=== PATIENT | male | born 1965 | race Caucasian/White ===

== ENCOUNTER 2017-11-22 16:19 | Emergency (ER) | payer BC ==
[~2017-11-22] VITALS: Ht 180.3 cm; Wt 95.0 kg
[2017-11-22 19:03] VITALS: BP 124/72
== END 2017-11-22 19:04 | disposition home or self-care (01) ==
LOC: ER 16:19
DX: S80.862A Insect bite (nonvenomous), left lower leg, initial encounter (principal); S80.861A Insect bite (nonvenomous), right lower leg, initial encounter; L03.116 Cellulitis of left lower limb; L03.115 Cellulitis of right lower limb; R03.0 Elevated blood-pressure reading, without diagnosis of hypertension; W57.XXXA Bitten or stung by nonvenomous insect and other nonvenomous arthropods, initial encounter; Y93.89 Activity, other specified; Y92.092 Bedroom in other non-institutional residence as the place of occurrence of the external cause; F17.210 Nicotine dependence, cigarettes, uncomplicated
CPT/HCPCS: 99283; Z7610

== ENCOUNTER 2022-11-22 17:06 | Emergency (ER) | payer BC, MEDICAID, OTHER ==
[~2022-11-22] VITALS: Ht 182.9 cm; Wt 100.0 kg
[2022-11-22 17:56] VITALS: BP 132/78; PULSE 82; RESP 18; TEMP 98; O2SAT 97
[2022-11-22] MEDS ORDERED: KETOROLAC 60MG/2ML VIAL IM ONE (18:15)
[2022-11-22] MEDS ORDERED: CYCL10TA21 MT (19:37)
[2022-11-22] MEDS ORDERED: IBUP-2029 MT (19:37)
== END 2022-11-22 20:19 | disposition home or self-care (01) ==
LOC: ER 17:06
DX: M54.9 Dorsalgia, unspecified (principal)
CPT/HCPCS: 99285; 93970; 72100; 96372; J1885

== ENCOUNTER 2022-12-13 17:31 | Emergency (ER) | payer OTHER ==
[~2022-12-13] VITALS: Ht 180.3 cm; Wt 97.0 kg
[~2022-12-13 17:31] MED LIST: CYCL10TA21 MT; IBUP-2029 MT
[2022-12-13 17:40] VITALS: TEMP 98.4; O2SAT 96
[2022-12-13] MEDS ORDERED: IBUPROFEN 600MG TABLET PO ONE (19:45)
[2022-12-13] MEDS ORDERED: AMOXICILLIN/POTASSIUM CLAVULANATE 875/125MG TAB PO ONE (19:45)
[2022-12-13] MEDS ORDERED: BACITRACIN ZINC OINT UDPKT TOP ONE (19:45)
[2022-12-13] MEDS ORDERED: IBUPROFEN 600MG TABLET PO NR (22:15)
[2022-12-13] MEDS ORDERED: AMOXICILLIN/POTASSIUM CLAVULANATE 875/125MG TAB PO NR (22:15)
[2022-12-13] MEDS ORDERED: BACITRACIN ZINC OINT UDPKT TOP NR (22:15)
[2022-12-13 22:22] VITALS: BP 144/108; PULSE 109; RESP 20
[2022-12-13] MEDS ORDERED: IBUP-2029 MT (22:57)
[2022-12-13] MEDS ORDERED: AMOX1TAB16 MT (22:57)
== END 2022-12-13 23:22 | disposition home or self-care (01) ==
LOC: ER 17:31
DX: S61.552A Open bite of left wrist, initial encounter (principal); Z98.890 Other specified postprocedural states; W54.0XXA Bitten by dog, initial encounter; Y93.89 Activity, other specified; Y92.89 Other specified places as the place of occurrence of the external cause; Y99.8 Other external cause status
CPT/HCPCS: 73130; 99283

== ENCOUNTER 2023-03-17 08:04 | Emergency (ER) | payer OTHER ==
[~2023-03-17] VITALS: Ht 180.3 cm; Wt 86.0 kg
[~2023-03-17 08:04] MED LIST changes: +AMOX1TAB16 MT
[2023-03-17 08:08] VITALS: TEMP 97.9; O2SAT 100
[2023-03-17 09:15] VITALS: BP 114/72; PULSE 92; RESP 20
[2023-03-17] MEDS ORDERED: BACITRACIN ZINC OINT UDPKT TOP ONE (09:15)
[2023-03-17] MEDS ORDERED: ACETAMINOPHEN WITH CODEINE 300/30MG TABLET PO ONE (09:15)
[2023-03-17] MEDS ORDERED: AMOX1TAB16 MT (09:51)
[2023-03-17] MEDS ORDERED: T3 PO (09:51)
[2023-03-17] MEDS ORDERED: IBUP-2029 MT (09:51)
== END 2023-03-17 10:11 | disposition home or self-care (01) ==
LOC: ER 08:04
DX: S61.452A Open bite of left hand, initial encounter (principal); W54.0XXA Bitten by dog, initial encounter; Y93.89 Activity, other specified; Y92.89 Other specified places as the place of occurrence of the external cause; Y99.8 Other external cause status
CPT/HCPCS: 73130; 99283

== ENCOUNTER 2023-05-13 12:27 | Emergency (ER) | payer OTHER ==
[~2023-05-13] VITALS: Ht 180.3 cm; Wt 89.0 kg
[~2023-05-13 12:27] MED LIST changes: +T3 PO
[2023-05-13 12:34] VITALS: O2SAT 100
[2023-05-13] MEDS: KETOROLAC 30MG/ML VIAL IM ONE (12:45)
[2023-05-13] MEDS: METHOCARBAMOL 500MG TABLET PO ONE (12:45)
[2023-05-13] MEDS ORDERED: IBUP-2029 MT (14:26)
[2023-05-13] MEDS ORDERED: GABA-529 MT (14:26)
[2023-05-13 14:59] VITALS: BP 136/87; PULSE 88; RESP 18; TEMP 98.2
== END 2023-05-13 15:11 | disposition home or self-care (01) ==
LOC: ER 12:27
DX: M51.36 Other intervertebral disc degeneration, lumbar region (principal)
CPT/HCPCS: 99283; 72110; 96372; J1885

== ENCOUNTER 2023-05-25 00:47 | Emergency (ER) | payer OTHER ==
[~2023-05-25] VITALS: Ht 180.3 cm; Wt 88.0 kg
[~2023-05-25 00:47] MED LIST changes: +GABA-529 MT
[2023-05-25 00:54] VITALS: O2SAT 99
[2023-05-25 02:14] LABS: BASOPHILS % 1.2 % (0.0-2.0); EOSINOPHILS % 0.8 % (0.0-5.0); HEMATOCRIT. 41.3 % (42.0-52.0); HEMOGLOBIN. 13.4 g/dL (14.0-18.0); LYMPHOCYTES % 23.2 % (20.0-50.0); MEAN CORPUSCULAR HEMOGLOBIN 28.6 pg (28.0-32.0); MEAN CORPUSCULAR HGB CONC 32.4 g/dL (31.0-37.0); MEAN CORPUSCULAR VOLUME 88.5 fL (80.0-94.0); MEAN PLATELET VOLUME 8.1 fl (7.4-10.4); MONOCYTES % 8.8 % (2.0-8.0); PLATELET 357 x1000/uL (130-400); RED BLOOD CELL COUNT 4.67 mill/uL (4.7-6.1); RED CELL DISTRIBUTION WIDTH 15.3 % (11.6-14.6); WHITE BLOOD COUNT 8.7 x1000/uL (4.5-11.0)
[2023-05-25 02:31] LABS: ALANINE AMINOTRANSFERASE 97 IU/L (10-49); ALBUMIN 3.4 g/dL (3.2-4.8); ASPARTATE AMINOTRANSFERASE 66 IU/L (<34); BILIRUBIN TOTAL 0.8 mg/dL (0.1-1.0); CALCIUM 7.9 mg/dL (8.7-10.4); CARBON DIOXIDE 21 mEq/L (21-32); CHLORIDE 113 mEq/L (98-107); CREATININE 1.1 mg/dL (0.6-1.3); GLUCOSE 91 mg/dL (70-105); POTASSIUM 4.1 mEq/L (3.5-5.1); PROTEIN TOTAL 6.1 g/dL (6.0-8.3); SODIUM 141 mEq/L (136-145); UREA NITROGEN BLOOD 23 mg/dL (9-23)
[2023-05-25 06:54] LABS: TROPONIN I HIGH SENSITIVITY 46 ng/L (3.0-53)
[2023-05-25 09:37] LABS: TROPONIN I HIGH SENSITIVITY 45 ng/L (3.0-53)
[2023-05-25 10:12] VITALS: BP 114/82; PULSE 79; RESP 16; TEMP 98.1
== END 2023-05-25 10:16 | disposition home or self-care (01) ==
LOC: ER 00:47
DX: R60.0 Localized edema (principal); F17.200 Nicotine dependence, unspecified, uncomplicated; Z79.899 Other long term (current) drug therapy
CPT/HCPCS: 80053; 83880; 85025; 84484; 36415; 71045; 93970; 93005; 99285; Z7610 ×2

== ENCOUNTER 2023-10-11 15:47 | Inpatient (IN) | payer OTHER ==
[~2023-10-11] VITALS: Ht 180.3 cm; Wt 97.8 kg
[~2023-10-11 15:47] MED LIST changes: +AMI2 PO; -AMOX1TAB16 MT; -CYCL10TA21 MT; +FURO80TA87 MT; -IBUP-2029 MT; -T3 PO
[2023-10-11 16:15] VITALS: O2SAT 97
[2023-10-11 17:07] LABS: CHLORIDE 107 mEq/L (98-107); POTASSIUM 3.9 mEq/L (3.5-5.1); SODIUM 139 mEq/L (136-145)
[2023-10-11 17:08] LABS: CALCIUM 8.3 mg/dL (8.7-10.4); CARBON DIOXIDE 26 mEq/L (21-32)
[2023-10-11 17:12] LABS: BASOPHILS % 1.3 % (0.0-2.0); EOSINOPHILS % 1.5 % (0.0-5.0); HEMATOCRIT. 27.8 % (42.0-52.0); HEMOGLOBIN. 8.3 g/dL (14.0-18.0); LYMPHOCYTES % 22.7 % (20.0-50.0); MEAN CORPUSCULAR HEMOGLOBIN 23.1 pg (28.0-32.0); MEAN PLATELET VOLUME 7.5 fl (7.4-10.4); NEUTROPHILS % 63.5 % (40.0-76.0); PLATELET 449 x1000/uL (130-400); RED CELL DISTRIBUTION WIDTH 22.2 % (11.6-14.6); WHITE BLOOD COUNT 9.4 x1000/uL (4.5-11.0)
[2023-10-11 17:13] LABS: GLUCOSE 128 mg/dL (70-105); UREA NITROGEN BLOOD 13 mg/dL (9-23)
[2023-10-11 17:14] LABS: DIFFERENTIAL COMMENT 1
[2023-10-11 17:15] LABS: ADD RBC MORPHOLOGY YES
[2023-10-11 18:33] LABS: PLATELET ESTIMATE INCREASED
[2023-10-11 18:38] LABS: ANISOCYTOSIS 2+; HYPOCHROMASIA 1+; MICROCYTOSIS 1+; OVALOCYTES 1+
[2023-10-11 18:59] LABS: TROPONIN I HIGH SENSITIVITY 19 ng/L (3.0-53)
[2023-10-11] MEDS: HYDROCODONE/ACETAMINOPHEN 5/325MG TABLET PO ONE (19:02)
[2023-10-11 19:09] LABS: CLARITY URINE CLEAR (CLEAR); COLOR URINE DARK YELLOW (YELLOW); GLUCOSE URINE NEGATIVE (NEGATIVE); KETONES URINE TRACE (NEGATIVE); LEUKOCYTE ESTERASE URINE 1+ (NEGATIVE); NITRITE URINE NEGATIVE (NEGATIVE); OCCULT BLOOD URINE NEGATIVE (NEGATIVE); PH URINE 6.5 (4.5-8.0); PROTEIN URINE 1+ (NEGATIVE); SPECIFIC GRAVITY URINE 1.017 (1.005-1.030)
[2023-10-11 19:18] LABS: BACTERIA URINE TRACE; RBC URINE NONE SEEN /hpf (0-2); SQUAMOUS EPITHELIAL CELL URINE RARE /lpf (RARE/1+)
[2023-10-11] MEDS: FUROSEMIDE 40MG/4ML VIAL IVP ONE (20:18)
[2023-10-11] MEDS ORDERED: CLONIDINE 0.1MG TABLET PO PRN (22:30)
[2023-10-11] MEDS ORDERED: IPRATROPIUM/ALBUTEROL 0.5-3(2.5)MG/3ML NEB HHN PRN (22:30)
[2023-10-11] MEDS ORDERED: ACETAMINOPHEN 325MG TABLET PO PRN (22:30)
[2023-10-11] MEDS ORDERED: MAGNESIUM/ALUMINUM HYDROXIDE/SIMETHICONE 30ML UDC PO PRN (22:30)
[2023-10-11] MEDS ORDERED: DOCUSATE SODIUM 100MG CAPSULE PO PRN (22:30)
[2023-10-11] MEDS ORDERED: ONDANSETRON HCL 4MG/2ML INJ IV PRN (22:30)
[2023-10-11 22:41] VITALS: BP 130/89; PULSE 94; RESP 17; TEMP 36.61404; O2SAT 98
[2023-10-11 22:48] VITALS: BP 130/89; PULSE 94; RESP 17; TEMP 36.6404
[2023-10-11 23:39] LABS: IRON 15 ug/dL (65-175)
[2023-10-11 23:40] LABS: LDL CHOLESTEROL 92 mg/dL (5-100); TRIGLYCERIDE 72 mg/dL (0-150)
[2023-10-11 23:41] LABS: ALANINE AMINOTRANSFERASE 722 IU/L (10-49); ALBUMIN 3.3 g/dL (3.2-4.8); ASPARTATE AMINOTRANSFERASE 223 IU/L (<34); BILIRUBIN DIRECT 0.4 mg/dL (<=3.0); CHOLESTEROL 131 mg/dL (<200); HDL CHOLESTEROL 41 mg/dL (>55)
[2023-10-11 23:42] LABS: BILIRUBIN TOTAL 0.8 mg/dL (0.1-1.0); PROTEIN TOTAL 6.8 g/dL (6.0-8.3); TOTAL IRON BINDING CAPACITY 365 ug/dl (250-425)
[2023-10-11 23:45] LABS: T4 FREE 1.11 ng/dL (0.89-1.76)
[2023-10-11 23:46] LABS: THYROID STIMULATING HORMONE 1.72 uIU/mL (0.55-4.78)
[2023-10-12 01:02] LABS: *AMPHETAMINES SCREEN URINE NEGATIVE (NEGATIVE)
[2023-10-12 01:03] LABS: *BARBITURATES SCREEN URINE NEGATIVE (NEGATIVE); *BENZODIAZEPINES SCREEN URINE NEGATIVE (NEGATIVE); *COCAINE SCREEN URINE NEGATIVE (NEGATIVE); CANNABINOID URINE SCREEN PRESUMPTIVE POSITIVE (NEGATIVE); ECSTASY MDMA SCREEN URINE NEGATIVE (NEGATIVE); METHADONE URINE SCREEN NEGATIVE (NEGATIVE); OPIATES URINE SCREEN PRESUMPTIVE POSITIVE (NEGATIVE); PHENCYCLIDINE URINE SCREEN NEGATIVE (NEGATIVE)
[2023-10-12] MEDS: GUAIFENESIN 200MG/10ML SUGAR FREE UDC PO PRN (01:09)
[2023-10-12] MEDS: ACETAMINOPHEN 325MG TABLET PO PRN (01:09)
[2023-10-12] MEDS: MAGNESIUM 2 G PREMIX 50 ML IV NR (01:25)
[2023-10-12 04:00] VITALS: BP 127/75; PULSE 90; RESP 19; TEMP 36.78072; O2SAT 100
[2023-10-12] MEDS: FERROUS SULFATE 325MG TABLET PO SCH (06:13)
[2023-10-12 06:56] LABS: CHLORIDE 107 mEq/L (98-107); POTASSIUM 4.2 mEq/L (3.5-5.1); SODIUM 140 mEq/L (136-145)
[2023-10-12 06:58] LABS: TROPONIN I HIGH SENSITIVITY 21 ng/L (3.0-53)
[2023-10-12 07:00] LABS: CALCIUM 8.6 mg/dL (8.7-10.4); CARBON DIOXIDE 27 mEq/L (21-32); CREATINE KINASE 137 IU/L (46-171)
[2023-10-12 07:04] LABS: ALANINE AMINOTRANSFERASE 653 IU/L (10-49)
[2023-10-12 07:05] LABS: BASOPHILS % 1.2 % (0.0-2.0); CREATININE 1.1 mg/dL (0.6-1.3); EOSINOPHILS % 1.4 % (0.0-5.0); GLUCOSE 134 mg/dL (70-105); HEMATOCRIT. 28.3 % (42.0-52.0); HEMOGLOBIN. 8.5 g/dL (14.0-18.0); LYMPHOCYTES % 21.6 % (20.0-50.0); MEAN CORPUSCULAR HEMOGLOBIN 23.3 pg (28.0-32.0); MEAN CORPUSCULAR HGB CONC 30.1 g/dL (31.0-37.0); MEAN CORPUSCULAR VOLUME 77.4 fL (80.0-94.0); MEAN PLATELET VOLUME 7.7 fl (7.4-10.4); NEUTROPHILS % 66.8 % (40.0-76.0); PLATELET 456 x1000/uL (130-400); RED BLOOD CELL COUNT 3.66 mill/uL (4.7-6.1); RED CELL DISTRIBUTION WIDTH 22.1 % (11.6-14.6); UREA NITROGEN BLOOD 16 mg/dL (9-23); WHITE BLOOD COUNT 10.7 x1000/uL (4.5-11.0)
[2023-10-12 07:07] LABS: ALBUMIN 3.5 g/dL (3.2-4.8); ASPARTATE AMINOTRANSFERASE 161 IU/L (<34); BILIRUBIN DIRECT 0.4 mg/dL (<=3.0); BILIRUBIN TOTAL 0.9 mg/dL (0.1-1.0); PHOSPHORUS 3.5 mg/dL (2.5-4.9); PROTEIN TOTAL 7.1 g/dL (6.0-8.3)
[2023-10-12 07:15] LABS: ADD RBC MORPHOLOGY NO; DIFFERENTIAL COMMENT 1
[2023-10-12 07:21] LABS: HEPATITIS B SURFACE ANTIGEN NEGATIVE (Negative)
[2023-10-12 07:43] LABS: HEPATITIS C AB NON REACTIVE (Neg) (Negative)
[2023-10-12 08:00] VITALS: BP 118/60; PULSE 98; RESP 16; TEMP 36.6696; O2SAT 100
[2023-10-12] MEDS: FUROSEMIDE 100MG/10ML VIAL IVP SCH (10:21)
[2023-10-12] MEDS: METOLAZONE 2.5MG TABLET PO SCH (10:22)
[2023-10-12 12:00] VITALS: BP 120/66; PULSE 99; RESP 18; TEMP 36.78072; O2SAT 100
[2023-10-12 16:00] VITALS: BP 122/60; PULSE 98; RESP 16; TEMP 37.00296; O2SAT 100
[2023-10-12 20:00] VITALS: BP 102/68; PULSE 85; RESP 18; TEMP 36.05844; O2SAT 100
[2023-10-12 22:18] LABS: TROPONIN I HIGH SENSITIVITY 21 ng/L (3.0-53)
[2023-10-12 22:19] LABS: CREATINE KINASE 102 IU/L (46-171)
[2023-10-13] VITALS: BP 123/76; PULSE 89; RESP 18; TEMP 37.16964; O2SAT 98
[2023-10-13 04:00] VITALS: BP 136/84; PULSE 88; RESP 18; TEMP 36.6696; O2SAT 98
[2023-10-13 06:26] LABS: HEMATOCRIT 26.6 % (42.0-52.0); HEMOGLOBIN 8.2 g/dL (14.0-18.0); MEAN CORPUSCULAR HEMOGLOBIN 23.3 pg (28.0-32.0); MEAN CORPUSCULAR HGB CONC 30.8 g/dL (31.0-37.0); MEAN CORPUSCULAR VOLUME 75.7 fL (80.0-94.0); PLATELET 429 x1000/uL (130-400); RED BLOOD CELL COUNT 3.51 mill/uL (4.7-6.1); RED CELL DISTRIBUTION WIDTH 22.6 % (11.6-14.6); WHITE BLOOD COUNT 9.7 x1000/uL (4.5-11.0)
[2023-10-13 06:40] LABS: CARBON DIOXIDE 29 mEq/L (21-32); CHLORIDE 104 mEq/L (98-107); SODIUM 138 mEq/L (136-145)
[2023-10-13 06:41] LABS: CALCIUM 8.3 mg/dL (8.7-10.4)
[2023-10-13 06:45] LABS: CREATININE 1.2 mg/dL (0.6-1.3)
[2023-10-13 06:46] LABS: GLUCOSE 123 mg/dL (70-105); UREA NITROGEN BLOOD 18 mg/dL (9-23)
[2023-10-13 08:00] VITALS: BP 126/86; PULSE 90; RESP 20; TEMP 35.89176; O2SAT 96
[2023-10-13] MEDS: MAGNESIUM 2 G PREMIX 50 ML IV NR (09:30)
[2023-10-13 12:00] VITALS: BP 129/73; PULSE 85; RESP 20; TEMP 36.61404; O2SAT 98
[2023-10-13] MEDS ORDERED: GABA-529 MT (15:14)
[2023-10-13] MEDS ORDERED: FURO80TA87 MT (15:14)
[2023-10-13] MEDS ORDERED: AMI2 PO (15:14)
[2023-10-13 16:00] VITALS: BP 130/64; PULSE 90; RESP 20; TEMP 36.50292; O2SAT 98
== END 2023-10-13 16:20 | disposition home or self-care (01) | DRG 194 ==
LOC: ER 15:47 → 7EST 20:36 → EDBEDREQ 20:40
PROVIDERS: ADMIT Hospitalist; ATTEND Hospitalist
DX: I11.0 Hypertensive heart disease with heart failure (principal); D75.839 Thrombocytosis, unspecified; F10.90 Alcohol use, unspecified, uncomplicated; I50.23 Acute on chronic systolic (congestive) heart failure; F12.90 Cannabis use, unspecified, uncomplicated; L73.2 Hidradenitis suppurativa; Z91.148 Patient's other noncompliance with medication regimen for other reason; Z79.899 Other long term (current) drug therapy; Z87.891 Personal history of nicotine dependence
CPT/HCPCS: 36415; 71045; 80048; 80061; 80076; 80305; 80320; 81003; 82550; 82728; 83036; 83540; 83550; 83735; 83880; 84100; 84439; 84443; 84484; 85025; 85027; 86705; 87340; 93005; 93306; 99285; J1940; J3475; G0480

== ENCOUNTER 2023-10-28 22:47 | Emergency (ER) | payer OTHER ==
[~2023-10-28] VITALS: Ht 180.3 cm; Wt 102.0 kg
[2023-10-28 22:56] VITALS: BP 117/75; TEMP 98.2; O2SAT 99
[2023-10-28 22:59] VITALS: PULSE 88; O2SAT 98
[2023-10-29] MEDS ORDERED: ACET-2708 MT (03:48)
[2023-10-29 04:10] VITALS: RESP 17
== END 2023-10-29 04:12 | disposition home or self-care (01) ==
LOC: ER 22:56
DX: R52 Pain, unspecified (principal); Z79.899 Other long term (current) drug therapy
CPT/HCPCS: 99282